=== PATIENT | female | born 1960 | race Two or more races ===

== ENCOUNTER 2018-02-04 15:18 | Emergency (ER) | payer OTHER ==
[~2018-02-04] VITALS: Ht 167.6 cm; Wt 59.0 kg
[2018-02-04 15:45] VITALS: BP 104/62
[2018-02-04] MEDS ORDERED: KETOROLAC TROMETHAMINE INJ 60 MG/2 ML VIAL IM ONE (16:00)
[2018-02-04] MEDS ORDERED: KETOROLAC TROMETHAMINE INJ 30 MG/ML VIAL ONE (16:06)
--- NOTE | 2018-02-04 16:16 | NUR ---
MEDICATED ORDERED. PT D/C HOME IN STABLE CONDITION.
== END 2018-02-04 16:18 | disposition home or self-care (01) ==
LOC: ER 15:19
DX: M54.5 Low back pain (principal); E11.9 Type 2 diabetes mellitus without complications; M81.0 Age-related osteoporosis without current pathological fracture; F17.200 Nicotine dependence, unspecified, uncomplicated
CPT/HCPCS: A4606; J1885; Z7610